=== PATIENT | male | born 2005 | race Caucasian/White ===

== ENCOUNTER 2023-07-15 19:18 | Emergency (ER) | payer OTHER, MEDICAID ==
[2023-07-15] MEDS ORDERED: Diphtheria,Pertussis(Acell),Tetanus Vaccine 0.5 ML Syringe IM ONE (19:52)
[2023-07-15] MEDS ORDERED: Cephalexin 500 MG Cap PO ONE (21:13)
[2023-07-15 22:22] VITALS: BP 110/75; PULSE 99
== END 2023-07-15 22:20 ==
LOC: JD.ED 19:18
DX: S51.012A Laceration without foreign body of left elbow, initial encounter (principal); Z23 Encounter for immunization; V89.2XXA Person injured in unspecified motor-vehicle accident, traffic, initial encounter
CPT/HCPCS: 12002; 72170; 73070; 90471; 90715; 99283; A9270